=== PATIENT | male | born 1975 ===

== ENCOUNTER 2024-03-05 09:58 | Outpatient (CLI) | payer SELFPAY ==
--- NOTE | 2024-03-05 10:05 | XR_ITS ---
WS: [id number] Exam: XR elbow RT 2V [id number] Date/Time of Exam: 03/05/2024 10:08 AM Reason For Exam: PAIN SWELLING OF R ELBOW No acute fracture or dislocation. The joint compartments are preserved. Bone spur projects along the olecranon process. Marked soft tissue swelling along proximal ulna. No joint effusion. XR/XR elbow RT 2V [id number] IMPRESSION: 1. Marked posterior soft tissue swelling along the proximal ulna with bone spur ring.
== END 2024-03-05 09:59 | disposition home or self-care (01) ==
PROVIDERS: PCP Family Medicine
DX: R22.31 Localized swelling, mass and lump, right upper limb (principal); M25.721 Osteophyte, right elbow
CPT/HCPCS: 73070